=== PATIENT | male | born 1950 | race Caucasian/White ===

== ENCOUNTER 2019-03-05 19:41 | Emergency (ER) | payer OTHER ==
[~2019-03-05] VITALS: Ht 185.4 cm; Wt 95.3 kg
[2019-03-05] MEDS ORDERED: TYLENOL PO (19:43)
[2019-03-05] MEDS ORDERED: NOVOLOG FL100 UNIT/M SUBQ (19:44)
[2019-03-05] MEDS ORDERED: GLUCAGON EMERGEN1 MG IM (19:45)
[2019-03-05] MEDS ORDERED: VALIUM10 MG PO (19:47)
[2019-03-05] MEDS ORDERED: LANTUS SOL100 UNIT/1 SUBQ (19:47)
[2019-03-05] MEDS ORDERED: LIPITOR40 MG PO (19:48)
[2019-03-05] MEDS ORDERED: SEROQUEL 25 MG25 M1 PO (19:48)
[2019-03-05] MEDS ORDERED: LOPRESSOR50 MG PO (19:49)
[2019-03-05] MEDS ORDERED: SUPER THERAVIT1 EACH PO (19:50)
[2019-03-05] MEDS ORDERED: AMIODARONE HCL400 MG PO (19:50)
[2019-03-05] MEDS ORDERED: COZAAR 25 MG TA25 M2 PO (19:50)
[2019-03-05] MEDS ORDERED: VITAMIN D31000 UNIT PO (19:51)
[2019-03-05] MEDS ORDERED: ASA81BEC PO (19:51)
[2019-03-05] MEDS ORDERED: POLYOX WSR-3011 GM PO (19:52)
[2019-03-05] MEDS ORDERED: RIVASTIGMINE3 MG PO (19:53)
[2019-03-05] MEDS ORDERED: SEROQUEL 100 M100 MG PO (19:53)
[2019-03-05] MEDS ORDERED: KLOR-CON 10 ER10 MEQ PO (19:55)
[2019-03-05] MEDS ORDERED: NEBULIZER INH (19:55)
[2019-03-05] MEDS ORDERED: NEURONTIN300 MG PO (19:56)
[2019-03-05] MEDS ORDERED: LASIX 40 MG TAB40 M1 PO (19:56)
[2019-03-05] MEDS ORDERED: IPRAT-ALBUT 0.5-3 ML INH (19:57)
[2019-03-05] MEDS ORDERED: EUCERIN ORIGIN250 ML TOP (19:57)
[2019-03-05] MEDS ORDERED: TUSSIN DM CLEA118 ML PO (19:58)
[2019-03-05] MEDS ORDERED: ZYRTEC10 M2 PO (19:59)
[2019-03-05] MEDS ORDERED: ACCU-CHEK1 EAC3 TRANSDERM (20:00)
[2019-03-05 20:10] LABS: ANION GAP 6 mmol/L (7-16); BUN 17 mg/dL (7-18); CALCIUM 8.9 mg/dL (8.5-10.1); CHLORIDE 102 mmol/L (98-107); CO2 32 mmol/L (21-32); CREATININE 1.4 mg/dL (0.7-1.3); GLUCOSE 253 mg/dL (74-106); SODIUM 140 mmol/L (136-145)
[2019-03-05 20:10] LABS: URINE BILIRUBIN NEGATIVE (Negative); URINE BLOOD NEGATIVE (Negative); URINE CLARITY CLEAR; URINE COLOR YELLOW; URINE GLUCOSE-RANDOM* NEGATIVE (Negative); URINE KETONES NEGATIVE (Negative); URINE LEUKOCYTES-REFLEX NEGATIVE (Negative); URINE NITRITE-REFLEX NEGATIVE (Negative); URINE PROTEIN (DIPSTICK) NEGATIVE (Negative); URINE SPECIFIC GRAVITY 1.015 (1.005-1.035); URINE UROBILINOGEN 0.2 E.U./dl (0.2-1.0)
[2019-03-05 20:20] LABS: MAGNESIUM 1.9 mg/dL (1.8-2.4); TROPONIN-I <0.06 ng/mL (<0.06)
[2019-03-05 21:05] VITALS: BP 160/73
--- NOTE | 2019-03-06 10:06 | EKG ---
[place] [address] [facility] [address] ELECTROCARDIOGRAM REPORT Name: NAZANIN BEE [id number] Admission: 03/05/19 Attend Phys: Discharge: 03/05/19 Date of : 48 Report #: [id number] THIS REPORT FOR: //name// [facility] ED Test Date: 2019-03-05 Test Time: 19:51:03 Pat Name: NAZANIN BEE Department: Room: Gender: Proof Reader: [facility] : 1950 Requested By: Skyler Lawrence Order Number: [id number] MD: Chico Guallpa Measurements Intervals [place] Rate: 60 P: 51 TN: 186 QRS: 51 QRSD: 89 T: 86 QT: 441 QTc: 441 Interpretive Statements Sinus rhythm No significant abnormality No previous ECG available for comparison Electronically Signed On 03-06-2019 10:06:01 REAL ESTATE ACQUISITION ANALYST by Chico Guallpa [email or web address] <ELECTRONICALLY SIGNED> By: Chico Guallpa MD, [facility] 03/06/19 1006 50 50 Chico Guallpa MD, FACC /EPI
== END 2019-03-05 21:53 | disposition home or self-care (01) ==
LOC: EDBD 19:41 → ER 19:41
PROVIDERS: Emergency Medicine
DX: S09.90XA Unspecified injury of head, initial encounter (principal); G89.29 Other chronic pain; M54.5 Low back pain; E11.9 Type 2 diabetes mellitus without complications; Z79.899 Other long term (current) drug therapy; Z79.82 Long term (current) use of aspirin; Z79.4 Long term (current) use of insulin; Z98.890 Other specified postprocedural states; W18.30XA Fall on same level, unspecified, initial encounter; Y93.89 Activity, other specified; Y92.89 Other specified places as the place of occurrence of the external cause; Y99.9 Unspecified external cause status

== ENCOUNTER 2020-09-10 00:11 | Emergency (ER) | payer OTHER ==
[~2020-09-10] VITALS: Ht 182.9 cm; Wt 95.3 kg
[~2020-09-10 00:11] MED LIST: ACCU-CHEK1 EAC3 TRANSDERM; AMIODARONE HCL400 MG PO; ASA81BEC PO; COZAAR 25 MG TA25 M2 PO; EUCERIN ORIGIN250 ML TOP; GLUCAGON EMERGEN1 MG IM; IPRAT-ALBUT 0.5-3 ML INH; KLOR-CON 10 ER10 MEQ PO; LANTUS SOL100 UNIT/1 SUBQ; LASIX 40 MG TAB40 M1 PO; LIPITOR40 MG PO; LOPRESSOR50 MG PO; NEBULIZER INH; NEURONTIN300 MG PO; NOVOLOG FL100 UNIT/M SUBQ; POLYOX WSR-3011 GM PO; RIVASTIGMINE3 MG PO; SEROQUEL 100 M100 MG PO; SEROQUEL 25 MG25 M1 PO; SUPER THERAVIT1 EACH PO; TUSSIN DM CLEA118 ML PO; TYLENOL PO; VALIUM10 MG PO; VITAMIN D31000 UNIT PO; ZYRTEC10 M2 PO
[2020-09-10] MEDS ORDERED: BACLOFEN 10MG T10 MG PO (00:34)
[2020-09-10] MEDS ORDERED: MUPIROCIN (00:35)
[2020-09-10] MEDS ORDERED: EUCERIN CREME57 GM TOP (00:35)
[2020-09-10] MEDS ORDERED: HUMALOG100 UNIT/1 SUBQ (00:38)
[2020-09-10] MEDS ORDERED: IPRAT-ALBUT 0.5-3 ML (00:40)
[2020-09-10] MEDS ORDERED: NAMENDA 5 MG TAB5 M1 PO (00:42)
[2020-09-10] MEDS ORDERED: RIVASTIGMINE3 MG PO (00:44)
[2020-09-10 03:38] VITALS: BP 154/76
== END 2020-09-10 03:39 | disposition home or self-care (01) ==
LOC: ER 00:11
DX: M54.5 Low back pain (principal); E11.9 Type 2 diabetes mellitus without complications; I10 Essential (primary) hypertension; F03.90 Unspecified dementia, unspecified severity, without behavioral disturbance, psychotic disturbance, mood disturbance, and anxiety; Z79.4 Long term (current) use of insulin; Z79.899 Other long term (current) drug therapy; W18.39XA Other fall on same level, initial encounter; Y93.89 Activity, other specified; Y92.128 Other place in nursing home as the place of occurrence of the external cause; Y99.8 Other external cause status

== ENCOUNTER 2020-10-25 12:54 | Inpatient (IN) | payer OTHER ==
[~2020-10-25] VITALS: Ht 182.9 cm; Wt 144.8 kg
--- NOTE | ~2020-10-25 | HC ---
[facility] [address] [place] [address] CONSULTATION Name: NAZANIN BEE Room #: 216-[facility] IN M.R.#: [id number] Admission: 10/25/20 Attend Phys: Sophie Verma MD Discharge: Date of : 48 Report #: [id number] THIS REPORT FOR: cc: Camden Alston MD, David W. MD Stephens, Thad A. MD ~ WOUND CARE CONSULTATION PERSONAL PHYSICIAN: Non-staff. CHIEF COMPLAINT: Venous leg ulcers and venous insufficiency. HISTORY OF PRESENT ILLNESS: The patient is a 69-year-old white male who lives in a care facility with a history of schizophrenia and dementia, who was brought in for elevated temperature of 103.6 as well as decreased blood pressure of 95. The patient was felt to be in sepsis and was noted to have a significant cellulitis going on in his right lower extremity. The patient was admitted for IV antibiotics and fluid rehydration. We have been asked to follow the patient for the venous stasis dermatitis as well as the edema. PAST MEDICAL HISTORY: Gained from the chart due to the fact that the patient is confused at this time. Significant for a traumatic brain injury, anxiety, depression, dementia, diabetes, hypertension, schizophrenia, anemia, and alcohol abuse. CURRENT MEDICATIONS: Multiple. I reviewed the patient's medication list. DRUG ALLERGIES: None. SOCIAL HISTORY: The patient supposedly has a history of past alcohol use, but no tobacco use. Resides in a care facility. FAMILY HISTORY: Unobtainable because of the patient's altered mental status at this point in time. REVIEW OF SYSTEMS: Unobtainable because of the patient's altered mental status at this point in time. PHYSICAL EXAMINATION: VITAL SIGNS: The patient is afebrile. Pulse 87, respiratory rate 18, BP 180/82. GENERAL: This is a confused white male, who is in mild to moderate distress secondary to symptoms. HEENT: Normocephalic, atraumatic. Mucous membranes are dry. Pupils are round. Sclerae white. [facility] [address] [place] [address] CONSULTATION Name: NAZANIN BEE Room #: [address] [place] [address] [place] .R.#: [id number] Admission: 10/25/20 Attend Phys: Sophie Verma MD Discharge: Date of : 48 Report #: [id number] NECK: Without JVD. LUNGS: Slight diminished breath sounds heard throughout. HEART: Regular. ABDOMEN: Obese, soft, and nontender. EXTREMITIES: The patient has increased erythema and warmth and tenderness to the right lower extremity from the ankle to the calf. There is significant venous stasis changes noted on bilateral lower extremities. Distal pulses are 1+. Bilateral heels are intact. NEUROLOGIC: Cranial nerves II-XII grossly intact, however, the patient is confused. Motor and sensory appear to be intact. LABORATORY DATA: White count 16.8, hemoglobin 10.4, BUN 28, creatinine 1.5, and albumin 3.8. IMPRESSION: 1. Venous stasis dermatitis with cellulitis, right lower extremity and edema to bilateral lower extremities. 2. Sepsis secondary to the cellulitis. 3. Acute kidney injury on chronic kidney disease. 4. Diabetes mellitus type 2. 5. Hypertension. 6. Generalized debility. 7. History of bipolar disease and schizophrenia. 8. History of traumatic brain injury with dementia. 9. History of alcohol abuse. PLAN: We will start AmLactin lotion to the bilateral lower extremities daily and p.r.n. We will hold off on compression at this time, pending arterial Dopplers review. If the arterial Dopplers are appropriate, we then will start Kerlix and Prince for compression. We will have the patient elevate his leg as much as possible. Antibiotics have been started by infectious disease. We will continue them. The patient also has been having gentle rehydration for his acute kidney injury. PT and OT has been consulted for strengthening as the patient is able. We will make sure we maximize the patient's oral protein supplementation for healing. We will continue to follow the patient. I appreciate ability to consult. By: 1231 Kodak Aparicio MD /nt
--- NOTE | ~2020-10-25 | EMS ---
[address] [address] EMS Patient Care Report Name: NAZANIN BEE Room #: PRE Melissa#: [id number] Admission: Attend Phys: Discharge: Date of : 48 Report #: [id number] THIS REPORT FOR: //name// Report Transmitted: 10/25/2020 12:40 EMS Care Summary [facility] Incident [id number] @ 10/25/2020 12:11 Incident Location [address] [place] [address] Patient NAZANIN BEE Male, 69 Years 1950 Patient Address [address] [place] [address] Patient History Dementia,Hypertension (HTN),Bipolar II Disorder,Osteoarthritis,Alcohol Abuse,Past Traumatic Brain Injury,Schizoaffective Disorder,Type 2 Diabetes, Patient Allergies No known allergies, Patient Medications Metoprolol, Atorvastatin, Atrovent, Tylenol, Seroquel, Gabapentin, Baclofen, Glucagon, Namenda, Potassium, Humalog, Lantus, Amiodarone, Zoloft, Rivastigmine, Lasix, Aspirin, Losartan, Chief Complaint lethargic Disposition Transported No Lights/[place] Reason Sick Person Transported To [address] [address] EMS Patient Care Report Name: NAZANIN BEE Room #: PRE Melissa#: [id number] Admission: Attend Phys: Discharge: Date of : 48 Report #: [id number] Narrative Staff called 911 because the pt was lethargic today and had low O2 sats. They said they found the pt in bed and responsive to verbal stimulus. They said the pt is normally able to get around the facility with his walker. They also said it isn't unusual for the pt to be confused due to his dementia. The staff said they did a rapid Covid test on the pt and it was negative this AM. The pt answered 'yeah' when I asked if he had any pain, but he was unable to tell me where the pain was. He denied shortness of breath. The staff said the pt was acting normal yesterday and complaint free. When his name was called, the pt would open his eyes and answer a question. He would seem to fall asleep quickly if not stimulated by voice or pain. The pt knew his birthday and where he grew up, but was confused as to the year and current location. The staff reported the pt had his Covid vaccination The pt was laying supine in bed. OPFD was with the pt. HPI, PMH, Exam, vitals. The pt was moved to the cot via sheet draw. Cot - unit. [address] elevation or depression noted. IV started. bG check. En route: Vitals. Biocom to [place]. No orders req'd/rec'd. The pt remained responsive to verbal stimulus during transport. He was moved to ER#8. Care released to staff Initial Vitals @12:35P: 113,SpO2: 62, @12:33P: 114,SpO2: 93,[place] Suspected: false @12:42P: 113,R: 20,BP: 164/75,Pain: 0/10,GCS: 14,Glucose: 140,SpO2: 90,Revised Trauma: 12, @PTAP: 116,R: 20,BP: 143/82,Pain: 0/10,GCS: 14,SpO2: 87,Revised Trauma: 12, @12:36P: 116,R: 20,BP: 146/76,Pain: 0/10,GCS: 14,Temp: 100.7F,SpO2: 93,Revised Trauma: 12, Assessments @12:24MENTAL:Person Oriented,SKIN:Diaphoresis,Hot,HEENT:Head/Face: No Abnormalities,Neck/Airway: No Abnormalities,LUNG SOUNDS:ABDOMEN:PELVIS//GI:Incontinence,EXTREMITIES:Left Arm: No Abnormalities,Right Arm: No Abnormalities,Left Leg: No Abnormalities,Right Leg: No Abnormalities,PULSE:NEURO:No Abnormalities, Impression Altered Mental Status Procedures @12:32Saline Lock 0cc (20 ga) Site: Hand-LeftResponse: UnchangedSucceeded@PTAOxygen FlowRate: 3 Device: Nasal Cannula (NC) Response: ImprovedSucceeded@12:3312-Lead ECGResponse: UnchangedSucceeded Timeline [address] [address] EMS Patient Care Report Name: NAZANIN BEE Room #: BEATA Torres#: [id number] Admission: Attend Phys: Discharge: Date of : 48 Report #: [id number] LATIN TEACHER,Oxygen FlowRate: 3 Device: Nasal Cannula (NC) Response: ImprovedSucceeded, LATIN TEACHER,BP: 143/82 M,PULSE: 116,RR: 20 R,SPO2: 87 Ox,ETCO2: ,BG: ,PAIN: 0,GCS: 14, 12:10,Call Received 12:10,Psap Call 12:11,Dispatched 12:12,En Route 12:19,On Scene 12:21,At Patient 12:32,Saline Lock 0cc 20 ga Site: Hand-Left,Response: UnchangedSucceeded, 12:33,12-Lead ECG,Response: UnchangedSucceeded, 12:33,BP: / M,PULSE: 114,RR: R,SPO2: 93 Ox,ETCO2: ,BG: ,PAIN: ,GCS: , 12:35,BP: / M,PULSE: 113,RR: R,SPO2: 62 Ox,ETCO2: ,BG: ,PAIN: ,GCS: , 12:36,BP: 146/76 M,PULSE: 116,RR: 20 R,SPO2: 93 Ox,ETCO2: ,BG: ,PAIN: 0,GCS: 14, 12:37,Depart Scene 12:42,BP: 164/75 M,PULSE: 113,RR: 20 R,SPO2: 90 Ox,ETCO2: ,B,PAIN: 0,GCS: 14, 12:49,At Destination 13:01,Call Closed Disclaimer v1.1 Copyright 2020 [employer] This EMS Care Summary contains data elements from the applicable legal record (which may be displayed differently). It is designed to provide pertinent information for the following purposes: continuity of care, clinical quality, and state data reporting. The complete legal record is available to ED staff and administrators of the receiving hospital in [employer]'s Patient Tracker. All data is provided "as is."
[~2020-10-25 12:54] MED LIST changes: +BACLOFEN 10MG T10 MG PO; +EUCERIN CREME57 GM TOP; +HUMALOG100 UNIT/1 SUBQ; +IPRAT-ALBUT 0.5-3 ML; +MUPIROCIN; +NAMENDA 5 MG TAB5 M1 PO
[2020-10-25 12:55] VITALS: BP 148/37
[2020-10-25 13:26] LABS: HEMATOCRIT 36.7 % (42.0-52.0); HEMOGLOBIN 11.9 gm/dL (14.0-18.0); MCH 25.8 pg (26.0-34.0); MCHC 32.4 g/dL (28.0-37.0); MCV 79.5 fL (80.0-100.0); PLATELET COUNT 178 thou/uL (150-400); RBC 4.61 mil/uL (4.50-6.00); RDW 16.5 % (10.5-14.5); WBC 21.6 thou/uL (4.0-11.0)
[2020-10-25 13:39] LABS: ANION GAP 8 mmol/L (7-16); BUN 24 mg/dL (7-18); CALCIUM 8.5 mg/dL (8.5-10.1); CHLORIDE 102 mmol/L (98-107); CO2 30 mmol/L (21-32); CREATININE 1.6 mg/dL (0.7-1.3); GLUCOSE 127 mg/dL (74-106); POTASSIUM 4.1 mmol/L (3.5-5.1); SODIUM 140 mmol/L (136-145)
[2020-10-25 13:49] LABS: ALBUMIN 3.8 g/dL (3.4-5.0); MAGNESIUM 1.6 mg/dL (1.8-2.4); SGOT 31 U/L (15-37); SGPT 30 U/L (16-63); TOTAL BILIRUBIN 0.7 mg/dL (0.2-1.0); TOTAL PROTEIN 8.6 g/dL (6.4-8.2); TROPONIN-I <0.06 ng/mL (<0.06)
[2020-10-25 14:38] LABS: URINE BILIRUBIN NEGATIVE (Negative); URINE BLOOD NEGATIVE (Negative); URINE CLARITY CLEAR; URINE COLOR YELLOW; URINE GLUCOSE-RANDOM* NEGATIVE (Negative); URINE KETONES NEGATIVE (Negative); URINE LEUKOCYTES-REFLEX NEGATIVE (Negative); URINE NITRITE-REFLEX NEGATIVE (Negative); URINE PROTEIN (DIPSTICK) NEGATIVE (Negative)
--- NOTE | 2020-10-25 14:42 | EKG ---
[facility] [address] [facility] [place] [address] ELECTROCARDIOGRAM REPORT Name: NAZANIN BEE Room #: REG FELIPE Torres#: [id number] Admission: 10/25/20 Attend Phys: Discharge: Date of : 48 Report #: [id number] [facility] ED Test Date: 2020-10-25 Test Time: 14:05:30 Pat Name: NAZANIN BEE Department: Room: Gender: M Director Of Tax Services: EVELYN : 1950 Requested By: Jose Lanier Order Number: [id number] MD: Porfirio Tim Measurements Intervals [place] Rate: 106 P: 58 GA: 180 QRS: 64 QRSD: 84 T: 9 QT: 327 QTc: 435 Interpretive Statements Sinus tachycardia Borderline T abnormalities, inferior leads Compared to ECG 03/05/2019 19:51:03 T-wave abnormality now present Sinus rhythm no longer present Electronically Signed On 10-25-2020 14:42:23 CDT by Porfirio Tim [email or web address] <ELECTRONICALLY SIGNED> By: Porfirio Tim MD, [facility] 10/25/20 1442 1405 1405 Porfirio Tim MD, FACC /EPI
--- NOTE | 2020-10-25 15:00 | NUR ---
PT FEVER HAS GONE DOWN. PT IS ALERT TO SELF AND PALCE. PT STATES HE DOES NOT HAVE ANY PAIN. PT CONTINUES TO DENY SOB BUT REMAINS TACHYPENIC ON THE MONITOR. PT IS STILL DIAPHORETIC IN NATURE AND VERY WARM TO THE TOUCH. PT DENIES N/V. PT DENIES URINARY ISSUES. PT HAS DRIED WOUNDS TO BLE, RIGHT WORSE THAN THE LEFT, REDNESS TO BOTH BLE. REDNESS, STREAKING TO RLE, RLE VERY WARM TO THE TOUCH. PT DENIES PAIN TO LEGS. PT HAS FIRM EDEMA TO BOTH BLE.
[2020-10-25 15:06] LABS: ABSOLUTE NEUTROPHILS 19.9 thou/uL (1.4-8.2); ANISOCYTOSIS 1+; POLYCHROMASIA 1+
--- NOTE | 2020-10-25 15:58 | NUR ---
PT SON TAYLOR BEE [phone] PT SON UPDATED AT THIS TIME. ENCOURAGED TO CALL WITH QUESTIONS OR CONCERNS
[2020-10-25 16:13] LABS: FOLIC ACID 17.2 ng/mL (8.6-58.9)
[2020-10-25 16:53] VITALS: BP 101/56
[2020-10-25 18:30] VITALS: BP 126/56
--- NOTE | 2020-10-25 20:04 | NUR ---
PT ARRIVED TO UNIT APPROX 1830 BY ER STAFF. PT ALERT, CONFUSED, PLEASANT, NOT IMPULSIVE. 2L O2 SATS WNL. BILAT LEG WOUNDS ASSESSED-WOUND CONSULT ORDERS IN. PT DENIES CONCERNS, STATES WANTING FOOD. CONT POC FOR PT. REPORT PASSED TO TIMO MITCHELL.
[2020-10-25 20:15] VITALS: BP 146/55
[2020-10-26] VITALS (7 sets, daily range): BP systolic 95–161; BP diastolic 48–124
[2020-10-26 03:17] LABS: ABSOLUTE NEUTROPHILS 15.1 thou/uL (1.4-8.2); HEMOGLOBIN 10.4 gm/dL (14.0-18.0); LYMPHOCYTES 5.7 % (24.0-44.0); MCH 25.8 pg (26.0-34.0); MCHC 32.5 g/dL (28.0-37.0); MCV 79.5 fL (80.0-100.0); MONOCYTES 3.8 % (1.0-8.0); PLATELET COUNT 149 thou/uL (150-400); POLYS 89.5 % (36.0-66.0); RBC 4.02 mil/uL (4.50-6.00); RDW 16.7 % (10.5-14.5); WBC 16.8 thou/uL (4.0-11.0)
[2020-10-26 03:31] LABS: CALCIUM 7.7 mg/dL (8.5-10.1); CREATININE 1.5 mg/dL (0.7-1.3); MAGNESIUM 1.8 mg/dL (1.8-2.4); POTASSIUM 3.9 mmol/L (3.5-5.1)
--- NOTE | 2020-10-26 09:36 | NUR ---
assess due to admit with sepsis. Pt also with lower extremity wound. Admit from a care center. Hx etoh, schizophrenia, DM, debility, TBI, dementia. Tolerated breakfast well this am. BG 149-163, BMI 43.3 extreme class III obesity. Add carb control to current diet order.
--- NOTE | 2020-10-26 12:30 | NUR ---
Pt admitted for severe sepsis. Pt is a LT resident at [facility] [phone] formerly known as [facility]. KENZIE spoke w/ Qasim, cell [phone] who confirmed this information. Pt NOK is August Torres [phone] who was provided a phone call and VM. Pt does use R/W at LT facility and was priorly independent w/ minimal assistance. KENZIE faxed updated clinical to [facility] fax [phone].
[2020-10-27 04:29] VITALS: BP 181/73
[2020-10-27 08:00] VITALS: BP 182/82; BP 206/88
[2020-10-27] MEDS ORDERED: LOSARTAN POTASS50 MG PO (08:24)
[2020-10-27] MEDS ORDERED: TOPROL XL25 MG PO (08:26)
[2020-10-27] MEDS ORDERED: DAILY VITAMIN1 EAC6 PO (08:27)
[2020-10-27] MEDS ORDERED: SEROQUEL 25 MG25 M1 PO (08:28)
[2020-10-27] MEDS ORDERED: SEROQUEL 50 MG50 MG PO (08:28)
[2020-10-27] MEDS ORDERED: SERTRALINE HCL100 MG PO (08:31)
[2020-10-27] MEDS ORDERED: MILK OF MA400 MG/5 M PO (08:36)
[2020-10-27] MEDS ORDERED: ACETAMINOPHEN325 M1 PO (08:37)
[2020-10-27] MEDS ORDERED: DEXTROMETHORPHAN-GUA (08:42)
--- NOTE | 2020-10-27 10:02 | NUR ---
rn spoke with pt's son WALLACE BEE ON PHONE. PT TALKED TO SON AND RN GAVE PT UPDATE. WALLACE STATES HE IS DPOA. TORI NUMBER IS [phone]
--- NOTE | 2020-10-27 10:56 | NUR ---
KENZIE spoke w/ Qasim at [facility]. If pt shall D/C over weekend. Weekend staff to fax D/C summary and packet to [phone] and call report to Qasim [phone]. [facility] can provide transport upon D/C. Anticipated D/C 10/30
[2020-10-27 12:42] VITALS: BP 164/57
[2020-10-27 15:10] VITALS: BP 147/77
[2020-10-27 20:00] VITALS: BP 158/77
--- NOTE | 2020-10-27 20:54 | NUR ---
PT IS VERY CONFUSED AND HARD TO REDIRECT AT TIMES. PT APPEARS TO HAVE SEVERE SHORT TERM MEMORY LOSS AND DOES NOT USE CALL LIGHT TO GET OUT OF BED OR OUT OF CHAIR. BED AND CHAIR ALARMS MUST BE ON AT ALL TIMES PT IS VERY UNSTEADY ON FEET.
--- NOTE | 2020-10-28 03:40 | NUR ---
ASSESSMENT: PT REMAIN ALERT AND CONFUSED TO TIME, PLACE, AND SITUATION. DID ATTEMPT TO GET OOB SEVERAL TIMES BEFORE GOING TO BED. BP ELEVATED. DR. CASAREZ AT THE BEDSIDE. TOLERATIMG PO INTAKE. POOR PROGRESS, WILL CONTINUE TO MONITOR.
[2020-10-28 04:35] LABS: ABSOLUTE NEUTROPHILS 4.6 thou/uL (1.4-8.2); BASOPHILS 0.7 % (0.0-2.0); EOSINOPHILS 2.4 % (0.0-3.0); HEMATOCRIT 32.8 % (42.0-52.0); HEMOGLOBIN 10.9 gm/dL (14.0-18.0); MCH 26.1 pg (26.0-34.0); MCHC 33.2 g/dL (28.0-37.0); MCV 78.7 fL (80.0-100.0); MONOCYTES 7.6 % (1.0-8.0); PLATELET COUNT 144 thou/uL (150-400); POLYS 69.3 % (36.0-66.0); RBC 4.17 mil/uL (4.50-6.00); RDW 17.2 % (10.5-14.5); WBC 6.7 thou/uL (4.0-11.0)
[2020-10-28 08:00] VITALS: BP 152/88
[2020-10-28 12:00] VITALS: BP 145/70
[2020-10-28 14:13] LABS: CALCIUM 7.8 mg/dL (8.5-10.1); CREATININE 1.2 mg/dL (0.7-1.3); POTASSIUM 3.5 mmol/L (3.5-5.1)
[2020-10-28 16:00] VITALS: BP 133/72
[2020-10-28 20:00] VITALS: BP 170/89
--- NOTE | 2020-10-29 04:29 | NUR ---
PT IS ALERT TO SELF WITH CONFUSION BUT PLEASANT. LUNGS ARE DIMINISHED. ABDOMEN IS ROUND BOWEL SOUNDS ACTIVE X4. SLEEPING WELL TONIGHT. DENIES ANY PAIN ISSUES. CALL LIGHT WITHIN REACH IF NEEDS ASSISTANCE.
[2020-10-29 09:00] VITALS: BP 175/76; BP 176/84
[2020-10-29 12:00] VITALS: BP 173/91
--- NOTE | 2020-10-29 17:44 | NUR ---
pt resting comfortably. pt afebrile, adequate uop, no bm, appropriate appetite. pt has been updated and educated on pt condition and poc. pt slowly progressing towards poc. assumed care at 1300.
[2020-10-29 20:00] VITALS: BP 175/73
[2020-10-30 04:00] VITALS: BP 161/56
--- NOTE | 2020-10-30 04:02 | NUR ---
PT IS ORIENTED X2 WITH CONFUSION AND IMPULSIVE. STAND BY ASSIST WITH URINAL AND DOES OKAY WITH STAFF. LUNGS ARE DIMINISHED. CELULITIS IN BOTH LOWER LEGS BILATERALY. DENIES ANY PAIN NOTED. ABDOMEN IS ROUND BOWEL SOUNDS ACTIVE X4. CALL LIGHT WITHIN REACH IF NEEDS ASSISTANCE. BED ALARM ON PT AND YELLOW SOCKS.
[2020-10-30 08:00] VITALS: BP 147/74
[2020-10-30] MEDS ORDERED: PROTONIX40 M2 PO (12:45)
[2020-10-30] MEDS ORDERED: HUMALOG100 UNIT/1 SUBQ (12:45)
[2020-10-30] MEDS ORDERED: SEROQUEL 25 MG25 M1 PO (12:45)
[2020-10-30 12:54] VITALS: BP 167/58
[2020-10-30] MEDS ORDERED: PROTONIX40 M4 PO (13:25)
[2020-10-30] MEDS ORDERED: CEPHALEXIN500 MG PO (13:25)
--- NOTE | 2020-10-30 15:34 | NUR ---
1520 - TELEPHONE UPDATE GIVEN TO TRAN GONSALEZ. ALL QUESTIONS ANSWERED ATT. UPDATED THAT PATIENT WILL BE DC BACK TO [facility] PER ORDERS. 1530 TELEPHONE REPORT GIVEN TO "PAULA ROGERS" AT [facility]. ALL QUESTIONS ANSWERED. IV IN RIGHT FA WILL BE DC'D BEFORE DC. PATIENT IS A/O X1 SELF ONLY, THIS IS REPORTED BASELINE. PATIENT IS ABLE TO AMBULATE WITH STANDBY ASSIST AND WALKER. DESCRIBED BLE CELLULITIS.
--- NOTE | 2020-10-30 17:52 | NUR ---
Patient to dicharge to [facility] today ltc. Sp with facility. Faxed orders. Facility arranged van for 163. Updated RN. Sp with son and updated of dc and timeframe. Faxed orders no further needs
== END 2020-10-30 17:08 | DRG 871 ==
LOC: EDBD 12:54 → ER 12:54 → EROBS 15:39 → 2N 15:39
PROVIDERS: Emergency Medicine; Nurse Practitioner; Specialist; ADMIT Hospitalist; ATTEND Hospitalist
DX: A41.9 Sepsis, unspecified organism (principal); J96.01 Acute respiratory failure with hypoxia; N17.9 Acute kidney failure, unspecified; L03.116 Cellulitis of left lower limb; L03.115 Cellulitis of right lower limb; E46 Unspecified protein-calorie malnutrition; Z68.41 Body mass index [BMI] 40.0-44.9, adult; F41.9 Anxiety disorder, unspecified; F31.9 Bipolar disorder, unspecified; R65.20 Severe sepsis without septic shock; F03.90 Unspecified dementia, unspecified severity, without behavioral disturbance, psychotic disturbance, mood disturbance, and anxiety; F10.20 Alcohol dependence, uncomplicated; F20.9 Schizophrenia, unspecified; E11.22 Type 2 diabetes mellitus with diabetic chronic kidney disease; I12.9 Hypertensive chronic kidney disease with stage 1 through stage 4 chronic kidney disease, or unspecified chronic kidney disease; E83.42 Hypomagnesemia; I87.8 Other specified disorders of veins; I95.9 Hypotension, unspecified; D64.9 Anemia, unspecified; D69.6 Thrombocytopenia, unspecified; Z20.822 Contact with and (suspected) exposure to COVID-19; Z79.82 Long term (current) use of aspirin; Z87.820 Personal history of traumatic brain injury; Z79.4 Long term (current) use of insulin; Z79.899 Other long term (current) drug therapy
CPT/HCPCS: 10081

== ENCOUNTER 2021-05-29 00:05 | Inpatient (IN) | payer OTHER ==
[~2021-05-29] VITALS: Ht 182.9 cm; Wt 102.1 kg
[~2021-05-29 00:05] MED LIST changes: +ACETAMINOPHEN325 M1 PO; +CEPHALEXIN500 MG PO; +DAILY VITAMIN1 EAC6 PO; +DEXTROMETHORPHAN-GUA; +LOSARTAN POTASS50 MG PO; +MILK OF MA400 MG/5 M PO; +PROTONIX40 M2 PO; +PROTONIX40 M4 PO; +SEROQUEL 50 MG50 MG PO; +SERTRALINE HCL100 MG PO; +TOPROL XL25 MG PO
[2021-05-29 00:11] VITALS: BP 145/68
[2021-05-29 00:50] LABS: ABSOLUTE NEUTROPHILS 6.8 thou/uL (1.4-8.2); BASOPHILS 0.3 % (0.0-2.0); EOSINOPHILS 0.3 % (0.0-3.0); HEMATOCRIT 33.5 % (42.0-52.0); HEMOGLOBIN 10.6 gm/dL (14.0-18.0); LYMPHOCYTES 7.4 % (24.0-44.0); MCH 24.9 pg (26.0-34.0); MCHC 31.7 g/dL (28.0-37.0); MCV 78.4 fL (80.0-100.0); MONOCYTES 7.2 % (1.0-8.0); PLATELET COUNT 166 thou/uL (150-400); POLYS 84.8 % (36.0-66.0); RBC 4.27 mil/uL (4.50-6.00); RDW 17.4 % (10.5-14.5)
[2021-05-29 00:55] LABS: CALCIUM 8.7 mg/dL (8.5-10.1); CREATININE 1.3 mg/dL (0.7-1.3)
[2021-05-29 01:05] LABS: ALBUMIN 3.4 g/dL (3.4-5.0); TOTAL BILIRUBIN 0.3 mg/dL (0.2-1.0); TOTAL PROTEIN 7.5 g/dL (6.4-8.2)
[2021-05-29] MEDS ORDERED: TESSALON PERLE100 MG PO (01:34)
[2021-05-29] MEDS ORDERED: GABAPENTIN 100100 MG PO (01:34)
[2021-05-29] MEDS ORDERED: HYDRALAZINE 10M10 MG PO (01:36)
--- NOTE | 2021-05-29 01:57 | NUR ---
LOW TEMP NOTED UPON OBTAINING A RECTAL TEMP. PROVIDER NOTIFIED AND WARM BLANKETS APPLIED TO PT.
[2021-05-29 02:29] LABS: URINE BILIRUBIN NEGATIVE (Negative); URINE BLOOD NEGATIVE (Negative); URINE CLARITY CLEAR; URINE COLOR YELLOW; URINE GLUCOSE-RANDOM* NEGATIVE (Negative); URINE KETONES NEGATIVE (Negative); URINE LEUKOCYTES-REFLEX NEGATIVE (Negative); URINE NITRITE-REFLEX NEGATIVE (Negative); URINE PROTEIN (DIPSTICK) NEGATIVE (Negative); URINE SPECIFIC GRAVITY >= 1.030 (1.005-1.035); URINE UROBILINOGEN 0.2 E.U./dl (0.2-1.0)
--- NOTE | 2021-05-29 07:40 | EKG ---
[address] [address] ELECTROCARDIOGRAM REPORT Name: NAZANIN BEE Room #: 170-4 ADM IN M.R.#: [id number] Admission: 05/29/21 Attend Phys: Max Clinton MD Discharge: Date of : 48 Report #: [id number] [facility] ED Test Date: 2021-05-29 Test Time: 01:13:35 Pat Name: NAZANIN BEE Department: Room: 170 Gender: M Steward/Stewardess Tourist Class: : 1950 Requested By: Floerntin Sanabria Order Number: [id number] MD: Porfirio Tim Measurements Intervals [place] Rate: 53 P: 43 [place]: 177 QRS: 46 QRSD: 108 T: 83 QT: 525 QTc: 493 Interpretive Statements SINUS BRADYCARDIA Compared to ECG 10/25/2020 14:05:30 T-wave abnormality no longer present Electronically Signed On 05-29-2021 7:39:49 AGRICULTURAL CONSULTANT by Porfirio Tim [email or web address] <ELECTRONICALLY SIGNED> By: Porfirio Tim MD, [facility] 05/29/21 0739 0113 0113 Porfirio Tim MD, FACC /EPI
[2021-05-29 12:15] VITALS: BP 160/79
--- NOTE | 2021-05-29 14:19 | NUR ---
PT ADMITTED RELATED TO ALOC. CM REVIEWED CHART AND SPOKE WITH CARE TEAM. CM CALLED PT'S SON TAYLOR BEE . HE CONFIRMED THAT HIS DAD IS A RETIREMENT CARE RESIDENT AT [facility]. CM INDICATED THAT CARE TEAM HAD INDICATED THAT PT MAY BE MEDICALLY STABLE TO DC TOMORROW. SON STATED THAT PLAN WOULD BE FOR PT TO RETURN TO [facility] ONCE MEDICALLY STABLE. CM CALLED AND SPOKE WITH [facility] IN ADMISSIONS THERE. THEY ARE AWARE. CLINICAL UPDATE FAXED TO FACILITY. CM FOLLOWING REGARDING DC PLANNING.
--- NOTE | 2021-05-29 15:40 | NUR ---
70-year old males admits to the ED from [facility] at [address] in [place] s/p fall. Notably Blood sugar was 60 and was given D10 by EMS in-route. 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 Per the record patient ID NOW is negative. Head CT reveals no definitive acute process. The patient has been admitted for Hypothermia, Cellulitis and encephalopathy. Discussed with attending and PT/OT orders are in with anticipation to return to his facility within 24-48 hours. CM attempted to reach out to both: Son and DPOA Jhonny Aaron at [phone] along with son who lives locally in [facility] at [phone] are listed as next of kin without success. CM will follow for discharge needs.
[2021-05-29 16:10] VITALS: BP 158/74
[2021-05-29 20:45] VITALS: BP 145/72
--- NOTE | 2021-05-30 03:23 | NUR ---
arrived to unit with ED RN. a&o to person and date. x 3 people to transfer to bed. bilat legs cellulitis noted. voiding per urinal. will continue to monitor.
[2021-05-30 08:56] VITALS: BP 163/72
[2021-05-30] MEDS ORDERED: AMOX TR-K CLV1 EAC4 PO (09:31)
[2021-05-30 10:16] VITALS: BP 163/72
--- NOTE | 2021-05-30 10:46 | NUR ---
CARE TEAM INDICATED THAT PT IS MEDICALLY STABLE TO DC BACK TO [facility] THIS DAY. CM ATTEMPTED PC TO PT'S LISTED DPOA SON WALLACE WITH NO ANSWER. CM CALLED AND SPOKE WITH PT'S SON TAYLOR AND INDICATED THE ABOVE. HE EXPRESSED UNDERSTANDING AND WAS AGREEABLE WTIH PT'S RETURN TO [facility] THIS DAY. CM REACHED OUT TO [place] IN ADMISSIONS AT FACILITY AND FAXED ORDERS. [facility] TRANSPORT ARRANGED FOR [phone]. NO NITIFIED UNIT AND PROVIDED NUMBER FOR REPORT. NO OTHER CM INTERVENTION INDICATED. CASE CLOSED.
--- NOTE | 2021-05-30 14:37 | NUR ---
Patient is very hard of hearing and appears confused. Patient was incontinent of urine this day. FSBS controlled with humalog; glargine discontinued. Patient is medically stable to discharge back to facility. IV discontinued. PO abx administered. Report given to Nurse Abebe.
== END 2021-05-30 15:00 | DRG 637 ==
LOC: ER 00:05 → 4S 03:59 → EROBS 03:59 → 4S 21:03
PROVIDERS: Emergency Medicine; ADMIT Internal Medicine; ATTEND Internal Medicine
DX: E11.649 Type 2 diabetes mellitus with hypoglycemia without coma (principal); G93.41 Metabolic encephalopathy; L03.116 Cellulitis of left lower limb; F03.90 Unspecified dementia, unspecified severity, without behavioral disturbance, psychotic disturbance, mood disturbance, and anxiety; F41.9 Anxiety disorder, unspecified; F31.9 Bipolar disorder, unspecified; I10 Essential (primary) hypertension; T68.XXXA Hypothermia, initial encounter; Z20.822 Contact with and (suspected) exposure to COVID-19; Z87.820 Personal history of traumatic brain injury; Z79.899 Other long term (current) drug therapy
CPT/HCPCS: 10100; 10195